=== PATIENT | female | born 1995 | race Caucasian/White ===

== ENCOUNTER 2019-03-13 17:22 | Emergency (ER) | payer OTHER | END 2019-03-13 17:57 | disposition left against medical advice (07) | LOC: JD.ED 17:22 | DX: Z53.21 Procedure and treatment not carried out due to patient leaving prior to being seen by health care provider (principal) ==

== ENCOUNTER 2020-05-16 03:26 | Emergency (ER) | payer OTHER ==
--- NOTE | 2020-05-16 04:01 | EDM.PDOC ---
ED HPI GENERAL MEDICAL PROBLEM - General Chief Complaint: ENT Problem Stated Complaint: TOOTH PAIN Time Seen by Provider: 05/16/20 03:37 Source of Information: Reports: Patient History Limitations: Reports: No Limitations - History of Present Illness INITIAL COMMENTS - FREE TEXT/NARRATIVE: Ms. Acevedo is a 24-year-old woman who now presents to the ED stating that she has had several days of lower left dental pain. She states that she saw her dentist yesterday, that x-rays were taken, that she was diagnosed with a dental abscess. She states that she was prescribed amoxicillin, with the plan to have the abscess drained on 06/02/2020. She was instructed to take Tylenol and ibuprofen, but her dentist specifically did not want to prescribe an opioid. The patient now presents the ED stating that she has been taking the Tylenol and ibuprofen, as instructed, along with Orajel, without adequate relief. She is requesting a stronger pain medication. Here in the ED, the patient is found to be hemodynamically stable, afebrile, saturating 100% on room air. Other than her dental pain, the patient denies having a recent fever, chills, sore throat, ear pain, nasal or sinus congestion, cough, dyspnea, chest pain, palpitations, nausea, vomiting, constipation, diarrhea, abdominal pain, urinary symptoms, recent weight gain or weight loss, recent bloody bowel movements or black bowel movements, recent joint aches, headaches, or rashes. The patient's PCP is Dr. Teetee Flores, at . Her Dentist is Dr. José Miguel Mulligan. Left Lower Tooth/Teeth Pain Score (Numeric/FACES): 10 - Related Data Allergies Allergy/AdvReac Type Severity Reaction Status Date / Time No Known Allergies Allergy Verified 05/16/20 03:38 Home Meds: Home Meds Levothyroxine [Synthroid] 100 mcg PO DAILY 03/13/19 [History] PARoxetine HCl [Paxil] 40 mg PO DAILY 03/13/19 [History] Past Medical History Psychiatric History: Reports: Anxiety, Depression Endocrine/Metabolic History: Reports: Hypothyroidism - Past Surgical History HEENT Surgical History: Reports: Oral Surgery (wisdom teeth extraction) Social & Family History - Tobacco Use Smoking Status *Q: Light Tobacco Smoker Years of Tobacco use: 4 Packs/Tins Daily: 0.1 - Caffeine Use Caffeine Use: Reports: None - Alcohol Use Alcohol Use History: No - Recreational Drug Use Recreational Drug Use: No - Living Situation & Occupation Living situation: Reports: Single, Alone Occupation: Employed ([employer]) ED ROS ENT - Review of Systems Review Of Systems: Comprehensive ROS is negative, except as noted in HPI. ED EXAM, ENT - Physical Exam Exam: See Below Exam Limited By: No Limitations General Appearance: Alert, WD/WN, No Apparent Distress Eye Exam: Bilateral Eye: EOMI, Normal Inspection Ears: Normal External Exam, Normal Canal, Hearing Grossly Normal, Normal TMs Nose: Normal Inspection, Normal Mucousa, No Blood Mouth/Throat: Normal Gums, Normal Lips, Normal Oropharynx, Other (Tooth #1 absent. Tooth #16 absent. Tooth #17 absent. Tooth #20 (the tooth of concern) with an incisal veronica, but no other visible abnormalities. No associated gingival swelling or pointing. Tooth #32 absent.) Head: Atraumatic, Normocephalic Neck: Normal Inspection, Supple, Non-Tender, Full Range of Motion. No: Lymphadenopathy (L), Lymphadenopathy (R) Course - Vital Signs Last Recorded V/S: Last Vital Signs Temp 36.6 C 05/16/20 03:33 Pulse 83 05/16/20 03:33 Resp 18 05/16/20 03:33 BP 126/89 05/16/20 03:33 Pulse Ox 100 05/16/20 03:33 - Re-Assessments/Exams Free Text/Narrative Re-Assessment/Exam: 05/16/20 03:56 As above, the patient has had several days of lower left dental pain, then saw a dentist yesterday, x-rays were performed, and she was diagnosed with a dental abscess. She was started on amoxicillin, however, her dentist specifically did not want to prescribe an opioid. The patient now presents the ED requesting pain medication. I explained to the patient that her request puts me into a difficult position: 1. The patient is already under medical care for this specific problem 2. Her treating dentist specifically did not want her to be on an opioid 3. My prescribing an opioid to the patient would essentially be going behind her dentist's back 4. Other than seeing a cavity on tooth #20, I see no other oral abnormalities, including no gingival swelling 5. Dental pain, in general, should be treated with NSAIDs, not opioids 6. While this specific patient has no known history of drug abuse, diversion in this age group is common For today's purposes, I will write an [facility] prescription for a small quantity of Ramsey, however, if that is inadequate, the patient will either need to return to her dentist, or see a different dentist. The patient expressed understanding. Departure - Departure Time of Disposition: 04:00 Disposition: Home, Self-Care 01 Condition: Good Clinical Impression: Dentalgia - Discharge Information *PRESCRIPTION DRUG MONITORING PROGRAM REVIEWED*: No *COPY OF PRESCRIPTION DRUG MONITORING REPORT IN PATIENT SUSIE: No Referrals: Teetee Flores MD [Ordering Only Provider] - José Miguel Mulligan DDS [Consulting Physician] - Additional Instructions: You were seen in the emergency room for several days of lower left dental pain due to a previously diagnosed dental abscess. We recommend that you take [id number] ibuprofen, 3 to 4 tablets (600-800 mg) to every 8 hours, with food, [id number] for the next several days. You may take 1 to 2 tablets of the prescription opioid Ramsey after every 6 hours, as needed for pain not relieved by ibuprofen. If you take Ramsey, do not drive for 12 hours afterwards. Ramsey may cause constipation, so consider taking a stool softener. If your pain continues, please follow-up with your dentist, or, alternatively, see a different dentist. If any other problems, please do not hesitate to return to the ER. Sepsis Event Note (ED) - Evaluation Sepsis Screening Result: No Definite Risk - Focused Exam Vital Signs: Vital Signs Temp Pulse Resp BP Pulse Ox 05/16/20 03:33 36.6 C 83 18 126/89 100
== END 2020-05-16 04:10 | disposition home or self-care (01) ==
LOC: JD.ED 03:26
DX: K02.9 Dental caries, unspecified (principal); K08.89 Other specified disorders of teeth and supporting structures; F17.290 Nicotine dependence, other tobacco product, uncomplicated; F41.9 Anxiety disorder, unspecified; F32.9 Major depressive disorder, single episode, unspecified; E03.9 Hypothyroidism, unspecified; Z79.899 Other long term (current) drug therapy
CPT/HCPCS: 99282

== ENCOUNTER 2022-05-08 21:50 | Emergency (ER) | payer SELFPAY ==
[2022-05-08 23:14] LABS: ESTIMATED GFR 104 mL/min (>60)
[2022-05-08 23:17] LABS: ACETAMINOPHEN 0 ug/mL (10-30)
== END 2022-05-08 23:45 | disposition home or self-care (01) ==
LOC: JD.ED 21:50
DX: F10.129 Alcohol abuse with intoxication, unspecified (principal); Z79.899 Other long term (current) drug therapy
CPT/HCPCS: 36415; 80053; 80143; 80179; 80307; 84443; 85025; 99284